=== PATIENT | female | born 1980 | race Caucasian/White ===

== ENCOUNTER 2018-10-02 13:05 | Outpatient (RCR) | payer OTHER ==
[~2018-10-02] VITALS: Ht 160 cm; Wt 113.4 kg
[~2018-10-02 13:05] MED LIST: OMEP-125 PO; [UNRECOGNIZED DRUG - OTHER]
--- NOTE | 2018-10-02 16:32 | Medical Nutrition Therapy ---
Nutrition Anthropometrics Height (Inches): 63 (STATED) Weight (Pounds): 250 (STATED) BMI: 44.2 Kurtis Nutrition Score: Kurtis Nutrition Risk Score: Dietary Referral Nutrition Risk Factors: Nutrition Risk Comment: Nutrition/Food History Breakfast: reg bagel, cream cheese Lunch: soup or 2c pasta Dinner: meat, 2c pasta or rice, veggies, sweet tea Snacks: 1c nuts + chips or cheese/crackers Nutritional Education Nutrition Education Topic: Diabetic Nutrition, Weight Loss Diet (prediabetes) Learning Readiness: Interested, Not Ready Teaching Methods: Discussion, Handout Response to Teaching: Verbalize understanding Teaching Recipient: Patient Nutrition Counseling: Pt states has dx of prediabetes with BG 101. Pt has family hx of diabetes with paternal grandparents. Pt was aware wt loss and exercise will help lower A1C. However pt stated unsure if she could lose wt. Per typical day, pt eats high CHO diet. Reviewed glycemic action of CHO and higher GI foods. Pt consumes ~ 1000 kcal/day in sweet tea and nuts. Recommend eliminate or cut back on these foods. Discussed different options to replace sweet tea and nuts. Using plate method, recommend pt eat unlimited non-starchy veg and lean meats and limit fruit, grains and dairy to 1c/meal. Considering pt's response to lower CHO and kcal suggestions, pt may not be ready for diet changes at this time. Encouraged pt to consider taking steps and working on one habit at a time. Nutrition Monitoring & Eval RD Patient Assessment Time: [address] Assessment Type: RD Education Nutritional Comment: provided 50 minutes MNT for prediabetes. Copies To Copies to: MICK SOMMERS MD ; RIVKA SILVA Oct 02, 2018 15:25
== END 2018-11-06 ==
LOC: DIET 13:05
PROVIDERS: ATTEND Obstetrics & Gynecology
DX: R73.03 Prediabetes (principal); E78.5 Hyperlipidemia, unspecified; E66.9 Obesity, unspecified; Z68.41 Body mass index [BMI] 40.0-44.9, adult; Z83.3 Family history of diabetes mellitus
CPT/HCPCS: 97802